=== PATIENT | female | born 1985 | race Hispanic/Latino ===

== ENCOUNTER 2018-06-02 03:42 | Inpatient (IN) | payer OTHER, SELFPAY ==
[2018-06-02] MEDS ORDERED: METHYLERGONOVINE 0.2MG/ML AMP IM PRN (04:03)
[2018-06-02] MEDS ORDERED: CARBOPROST TROME 250 MCG/ML IM PRN (04:03)
[2018-06-02] MEDS ORDERED: Ringers Lactate 1,000 ML IV PRN (04:03)
[2018-06-02] MEDS ORDERED: NA CIT/CITRIC AC 30 ML ORAL UDC PO ONE (04:10)
[2018-06-02] MEDS ORDERED: CEFAZOLIN 2 GM in NA CHLORIDE 0.9% 100 ML IVPB ONE (04:10)
[2018-06-02] MEDS ORDERED: FAMOTIDINE 20 MG/2 ML VIAL IV ONE ×3 (04:10→04:28)
[2018-06-02 04:26] LABS: RPR Titer ND
[2018-06-02 04:28] LABS: Absolute Lymphocytes (CBC) 1.8 K/uL (0.7-4.9); Absolute Monocytes 0.5 K/uL (0.1-1.3); Absolute Neutrophil 5.1 K/uL (1.8-8.0); Basophils % 0.3 % (0-1.3); Eosinophils % 1.9 % (0-4.4); Hematocrit 41.7 % (36.0-45.0); Lymphocytes % 23.5 % (15.3-44.8); Monocytes % 6.9 % (3.3-12.3); RBC Red Blood Cell Count 4.58 M/uL (3.86-4.86)
[2018-06-02] MEDS ORDERED: CEFAZOLIN 2GM (PREMIX IV) 0 GM/0 ML BAG ONE (04:30)
[2018-06-02] MEDS ORDERED: NA CHLORIDE 0.9% 100 ML IV ONE (04:33)
[2018-06-02] MEDS ORDERED: CEFAZOLIN SODIUM 1 GM/VIAL ONE (04:33)
[2018-06-02] MEDS ORDERED: MORPHINE SULFATE/PF 1 MG/ML (10 ML AMP) ONE (04:53)
[2018-06-02] MEDS ORDERED: Phenylephrine HCl 10 MG/ML 1 ML VIAL ONE (04:53)
[2018-06-02] MEDS ORDERED: OXYTOCIN 10 UNIT/ML ML IV ONE (04:54)
[2018-06-02] MEDS ORDERED: ONDANSETRON 4 MG/2 ML VIAL ONE (04:54)
[2018-06-02] MEDS ORDERED: LIDOCAINE 1% MPF 5 ML VIAL ONE (04:57)
[2018-06-02] MEDS ORDERED: BUPIVACAINE 0.75% (PF) 2 ML SP ONE (04:57)
[2018-06-02] MEDS ORDERED: Ringers Lactate 1,000 ML IV SCH (05:00)
[2018-06-02] MEDS ORDERED: METOCLOPRAMIDE 10 MG/2mL INJ IV SCH (05:00)
[2018-06-02] MEDS ORDERED: NS 0.9% VIAL 10 ML ONE (05:03)
[2018-06-02] MEDS ORDERED: KETOROLAC 30 MG/ML INJ IM PRN ×3 (06:20→06:45)
[2018-06-02] MEDS ORDERED: Oxycodone HCl/Acetaminophen 1 TAB TAB PO PRN (06:20)
[2018-06-02] MEDS ORDERED: DIPHENHYDRAMINE 25 MG TAB/CAP PO PRN (06:20)
[2018-06-02] MEDS ORDERED: BISACODYL 10 MG RECTAL SUPP RECT PRN (06:20)
[2018-06-02] MEDS ORDERED: ONDANSETRON 4 MG/2 ML VIAL IV PRN (06:20)
[2018-06-02] MEDS ORDERED: KETOROLAC 30 MG/ML INJ IV PRN ×3 (06:20→15:41)
[2018-06-02] MEDS ORDERED: ACETAMINOPHEN 500 MG TAB PO PRN ×2 (06:20)
[2018-06-02] MEDS ORDERED: CEFAZOLIN 1GM (PREMIX IV) 1 GM/50 ML BAG IV ONE (06:20)
[2018-06-02] MEDS ORDERED: ONDANSETRON 4 MG (ODT) TAB PO PRN (06:20)
[2018-06-02] MEDS ORDERED: OXYTOCIN/LR 20 UNIT/1,000 ML BAG IV SCH (07:00)
--- NOTE | 2018-06-02 09:29 | PREOPHP ---
Date of Admission: 06/02/2018 This is a 32-year-old, 3, para 2, 2 previous C-sections for a repeat and tubal if p ossible if lower uterine segment is thin. Scheduled for June 16, comes in tonight with rupture o f membranes and an early labor, 2 cm gross rupture of membranes. Sanchez regularly. FHTs normal and reactive. We will proceed with at this time. Infection, blood loss, anesthetic compli cations, injury to bladder, bowel, ureter, postoperative complications, clots in legs discussed previ ously in the office. Family History: Noncontributory. Allergies: SHE HAS NO ALLERGIES. Social History: She does not smoke. Physical Examination: HEENT: Clear. Pupils equally round and reactive to light and accommodation. Conjunctivae well perf used. No oral, lingual, or buccal lesions. Chest and Lungs: Clear. Heart: Without murmurs, thrills, heaves, or rubs. Breasts: Not examined. Abdomen: Term size. Extremities: Clear without edema, cyanosis, or clubbing. Pelvic: As stated, 2 cm rupture of membranes, light bloody show. We will proceed with repeat section and tubal if lower uterine segment is thin. HONG/ANTONIA Voice ID: [id number]
[2018-06-02] MEDS: D5LR 1,000 ML with OXYTOCIN 20 UNIT IV SCH ×2 (09:39)
[2018-06-02] MEDS ORDERED: METHYLERGONOVINE 0.2 MG TAB PO PRN (10:50)
[2018-06-02] MEDS: METHYLERGONOVINE 0.2 MG TAB PO SCH ×3 (14:30→22:30)
[2018-06-02] MEDS ORDERED: KETOROLAC 30 MG/ML INJ ONE (15:55)
--- NOTE | 2018-06-02 17:30 | OP ---
Surgeon: Abelardo Messina MD Rossana Casiano is a 32-year-old, 3, para 2, scheduled for repeat on June 16, comes in active labor with ruptured membranes, light bloody show at 38 weeks, 2 cm on admission. Ful l preoperative counseling concerning procedures and possible complications, including infection, bloo d loss, anesthetic complications, injury to bladder, bowel, ureter, postoperative complications, clot s in legs, and pneumonia. The patient knows fully well this does not constitute all the possible pro blems could occur during or following surgery. Anesthesia: Spinal block anesthesia by Dr. Murray. Roving Frame Tender Surgeon: Bandar Hayes MD Description Of Procedure: After prepping and draping, timeout was performed. Pfannenstiel incision was created. The incision was carried to the fascia. The fascia was incised and incision carried tr ansversely bilaterally. Anterior and posterior fascial planes were developed with both blunt and sha rp dissection. The midline peritoneal defect was discovered and entered. Low transverse uterine inc ision created. A 7 pounds, 4 ounce male infant was delivered without difficulties. Apgars 9 and 9. Cord blood specimen was obtained. Placenta was removed manually. Uterus cleared of clot and blood and exteriorized. Cervical os was dilated with ring clamp. Uterus closed with a running-locked stit ch of 1 chromic followed by an imbricating stitch of 1 chromic followed by 3 [id number]-azxfv stitches in the right angle for complete hemostasis. Estimated blood loss during the procedure was 900 cc. Gutters cleared of clot and blood. Uterus was replaced in the peritoneal cavity. No further bleedin g seen. Muscles were closed with 0 Vicryl. One bxgomq-go-scxuq stitch with 2-0 plain in the very lo wer part of the rectus muscles approximation for complete hemostasis. The fascia was closed with 1 V icryl running from either angle to the midline. Subcutaneous tissue was closed with 2-0 plain. Abso rbable charles placed and then metal charles. The patient had been given 2 g of Ancef. Tolerated al l procedures well. She was transferred back to her room in good condition. Final Diagnoses: Term intrauterine at 38 weeks, previous section in labor repeat section. Spinal block anesthesia. HONG/ANTONIA Voice ID: [id number] Report ID: [id number]
[2018-06-02 21:34] LABS: RPR (Rapid Plasma Reagin) NON-REACT (NON-REACT)
[2018-06-02 23:42] VITALS: BMI 28.3
[2018-06-03] MEDS: METHYLERGONOVINE 0.2 MG TAB PO SCH ×3 (02:55→13:15)
[2018-06-03] MEDS: D5LR 1,000 ML with OXYTOCIN 20 UNIT IV SCH ×2 (03:25)
[2018-06-03] MEDS ORDERED: MAGNESIUM HYDROXIDE 8% 30 ML PO PRN (06:20)
[2018-06-03] MEDS: IBUPROFEN 200 MG TAB PO PRN ×2 (10:00→16:45)
--- NOTE | 2018-06-03 13:07 | PN ---
Postoperatively, patient is doing quite well. H and H with expected change. Lochia is now normal. No complaints of post spinal block problems. We will stop her IV this morning and take out her Whitaker , begin ambulation, and p.o. intake. If she continues to do well, send her home tomorrow morning. Joel cantu discussion with the patient. HONG/ANTONIA Voice ID: [id number] Report ID: [id number]
[2018-06-04] MEDS: Oxycodone HCl/Acetaminophen 1 TAB TAB PO PRN ×2 (02:37→08:12)
[2018-06-04 07:51] VITALS: BP 120/83; TEMP 97.7
--- NOTE | 2018-06-04 13:25 | DS ---
Date of Discharge: 06/04/2018 Hospital Course: A 32-year-old, 3, para 2, previous C-sections x2. She came in labor at 38 weeks, was delivered of a 7-pound 4-ounce male , 9 and 9. Spinal block anesthesia. 900 cc blood loss. Low transverse uterine incision. Ancef for prophylaxis. Rh positive, immune to Rube lla. Post operatively, afebrile, ambulating, voiding. Lochia is normal. H and H with expected viera ge pre and postop. No problems this morning. Dismissed, to return to my office next week for staple removal. To report any temperature elevation of 100 degrees or greater, severe pain, heavy bleeding , or any other type of abnormalities. Final Diagnoses: Term intrauterine , 38 weeks, previous section, in labor. Repeat section. Spinal block anesthesia. HONG/ANTONIA Voice ID: [id number] Report ID: [id number]
[2018-06-06 03:01] LABS: HBsAG Nonreactive (Nonreactive)
== END 2018-06-04 08:55 | disposition home or self-care (01) | DRG 788 ==
LOC: L&D 03:42 → 2ND-WC 04:01
PROVIDERS: ADMIT Specialist; ATTEND Specialist
PROC: 10D00Z1 Extraction of Products of Conception, Low, Open Approach (ICD-10-PCS; principal; 2018-06-02 05:02)
DX: O34.211 Maternal care for low transverse scar from previous cesarean delivery (principal); N85.8 Other specified noninflammatory disorders of uterus; O75.82 Onset (spontaneous) of labor after 37 completed weeks of gestation but before 39 completed weeks gestation, with delivery by (planned) cesarean section; Z3A.38 38 weeks gestation of pregnancy; Z37.0 Single live birth
CPT/HCPCS: 36415; 85014; 85025; 86592; 86850; 86900; 86901; 87340; 88307; J0690; J2210; J2370; J2405; J2590; J2765